=== PATIENT | male | born 1990 | race Two or more races ===

== ENCOUNTER 2025-02-08 14:57 | Emergency (ER) | payer MEDICAID, SELFPAY ==
--- NOTE | 2025-02-08 15:33 | XR_ITS ---
Examination: PA chest single view Technique: Upright PA chest single view. Date and time: February 08, 2025, 1551 hrs. Comparison September 18, 2023 Indications: Onset chest pain today. Findings: Normal heart size. Lungs are clear. The osseous structures are intact. Impression: No active disease
[2025-02-08 15:34] VITALS: BP 143/87; PULSE 93; RESP 18; TEMP 37.7; O2SAT 97; BMI 30.7
--- NOTE | 2025-02-08 15:35 | PD.EDRME ---
Rapid Medical Screening Exam RME Arrival date/time: 02/08/25 14:57 This is a case of 34-year-old male who came into the emergency room due to fever cough and congestion for 2 days patient also noted to have a lump of the neck denies any shortness of breath or chest pain I have greeted and performed a focused initial assessment of this patient.? Initial appropriate labs ordered at this time.? A comprehensive ED assessment and evaluation of the patient and analysis of all test and completion of medical decision making process will be conducted by additional ED provider. Chief Complaint: Flu Like Symptoms Time Seen by Provider: 02/08/25 15:02
[2025-02-08 15:58] LABS: Lactate (Lactic Acid) 1.1 mMol/L (0.4-2.0)
[2025-02-08 16:01] LABS: Basophils # (Auto) 0.1 Thou/mm3 (0.0-0.2); Basophils % (Auto) 1 % (0-2.5); Eosinophils # (Auto) 0.2 Thou/mm3 (0.0-0.5); Eosinophils % (Auto) 2 % (0-10); Hematocrit 42.1 % (41.0-53.0); Hemoglobin 15.1 g/dL (13.5-16.0); Immature Granulocytes % (Auto) 0 % (0-0); Immature Granulocytes Auto 0.03 Thou/mm3 (0.00-0.00); Lymphocytes # (Auto) 1.8 Thou/mm3 (1.0-4.8); Lymphocytes % (Auto) 17 % (10-50); Mean Corpuscular HGB Conc 35.9 g/dl (31.0-37.0); Mean Corpuscular Hemoglobin 31.7 pg (25.0-35.0); Mean Corpuscular Volume 88 fL (80-100); Monocytes % (Auto) 9 % (0-12); Neutrophils # (Auto) 7.8 Thou/mm3 (1.8-7.7); Neutrophils % (Auto) 71 % (37-80); Nucleated Red Blood Cell % 0 /100 WBC (0); Platelet Count 331 Thou/mm3 (140-440); RDW Standard Deviation 42.5 fL (35.1-43.9); Red Blood Count 4.76 Miln/mm3 (4.50-5.90)
[2025-02-08 16:04] VITALS: BP 130/72; PULSE 78; RESP 18; TEMP 38.4; O2SAT 96
[2025-02-08 16:19] LABS: Collection Type, Urine Voided; Squamous Epithelial Cell,Urine 0 /hpf (0-5)
[2025-02-08 16:20] LABS: Alanine Aminotransferase 52 U/L (10-49); Alkaline Phosphatase 81 U/L (46-116); Anion Gap 10 (7-16); Aspartate Amino Transferase 37 U/L (0-34); BUN/Creatinine Ratio 8 Ratio (12-20); Bilirubin,Total 0.4 mg/dL (0.3-1.2); Blood Urea Nitrogen 11 mg/dL (9-23); Calcium 9.5 mg/dL (8.3-10.6); Calcium (Corrected) 9.5 mg/dL (8.5-10.1); Carbon Dioxide 27.4 mMol/L (20.0-31.0); Chloride 102 mMol/L (98-107); Creatinine (Component) 1.4 mg/dL (0.6-1.3); Estimated Creatinine Clearance 91.2 mL/min (>60); Globulin 2.5 gm/dL (2.3-3.5); Glucose 94 mg/dL (74-106); Osmolality,Calculated 276 (275-295); Sodium 139 mMol/L (136-145); Total Protein 7.5 gm/dL (5.7-8.2); eGFR > 60 See Note
[2025-02-08 16:32] LABS: COVID-19 Antigen (In-House) Negative (Negative)
[2025-02-08 16:39] VITALS: TEMP 38.4
[2025-02-08] MEDS: ACETAMINOPHEN 500 MG TABLET 1000 MG PO (16:39)
[2025-02-08 16:42] LABS: Bilirubin,Urine Negative (Negative); Blood,Urine 2+ (Negative); Color,Urine Yellow (Lt Yel-Yel); Glucose, Urine Negative (Negative); Ketones,Urine Negative (Negative); Leukocyte Esterase,Urine Negative (Negative); Nitrite,Urine Negative (Negative); PH,Urine 6.5 (5.0-7.0); Protein,Urine Trace (Neg - Trace); RBC,Urine 2 /hpf (0-3); Specific Gravity,Urine 1.027 (1.001-1.035); Urobilinogen,Urine Negative mg/dL (0.0-1.0); WBC,Urine < 1 /hpf (0-5)
[2025-02-08 16:43] LABS: Clarity,Urine Hazy (Clear/Hazy)
--- NOTE | 2025-02-08 16:46 | PD.EDURI ---
Upper Respiratory Inf. RME/HPI General Chief Complaint: Flu Like Symptoms Stated Complaint: FEVERS, COLD CHILLS, LUMPS ON NECK Time Seen by Provider: 02/08/25 15:02 Arrival date/time: 02/08/25 14:57 Limitations: no limitations RME / HPI RME / HPI Narrative: 02/08/25 14:57 This is a case of 34-year-old male who came into the emergency room due to fever cough and congestion for 2 days patient also noted to have a lump of the neck denies any shortness of breath or chest pain I have greeted and performed a focused initial assessment of this patient.? Initial appropriate labs ordered at this time.? A comprehensive ED assessment and evaluation of the patient and analysis of all test and completion of medical decision making process will be conducted by additional ED provider. 16:45 PM Patient is a healthy 34-year-old male who is here today with a 2 to 3-day history of myalgias, malaise, and nausea. He has had no emesis. He endorses sinus congestion, cough, and nonbloody loose stools. He states he was recently treated for dental infection and finished a course of antibiotics for that. He has no other acute complaints. Related Data Home Medications ?Medication ?Instructions ?Recorded ?Confirmed mirtazapine 7.5 mg tablet 7.5 mg PO HS 09/20/23 11/12/23 Previous Rx's ?Medication ?Instructions ?Recorded ibuprofen 800 mg tablet 800 mg PO TID PRN pain #30 tabs 05/09/24 Allergies Allergy/AdvReac Type Severity Reaction Status Date / Time No Known Allergies Allergy Verified 02/08/25 15:00 Review of Systems Review of Systems Systems Reviewed: All systems reviewed, normal except as documented ED Exam General Limitations: Present no limitations General appearance: Present alert and in no apparent distress Head Head exam: Present atraumatic Eye Eye exam: Present normal appearance, PERRL and EOMI ENT ENT exam: Present normal exam, normal oropharynx and mucous membranes moist Neck Neck exam: Present full ROM, trachea midline and lymphadenopathy; Absent meningismus Chest Chest inspection: Present normal inspection and symmetric chest wall rise Respiratory Respiratory exam: Present normal lung sounds bilaterally Cardiovascular Cardiovascular exam: Present regular rate, normal rhythm and normal heart sounds Abdominal Exam Abdominal exam: Present soft and normal bowel sounds Extremities Exam Extremities exam: Present normal inspection and full ROM Back Exam Back exam: Present normal inspection and full ROM Neurological Exam Neurological exam: Present alert, oriented X3 and CN II-XII intact Psychiatric Psychiatric exam: Present normal affect and normal mood Skin Skin exam: Present warm, dry, intact and normal color Course Quality Measures none Orders Category Date Time Status Bedside COVID-19 Antigen Test NOW Care 02/08/25 15:33 Active Bedside Influenza A&B Antigen Test NOW Care 02/08/25 15:33 Completed XR chest 1V Stat Exams 02/08/25 15:33 Completed CBC Stat Lab 02/08/25 15:48 Completed CMP [Comprehensive Metabolic Panel] Stat Lab 02/08/25 15:48 Completed COVID-19 Antigen (In-House) Stat Lab 02/08/25 15:51 Completed Lactate (Lactic Acid) Stat Lab 02/08/25 15:48 Completed Urinalysis Stat Lab 02/08/25 15:56 Completed Acetaminophen Tab [Tylenol ES Tab] Med 02/08/25 16:33 Discontinued 1,000 mg PO X1 ONE Sodium Chloride 0.9% 1000 ml [Ns] 1,000 ml Med 02/08/25 16:22 Discontinued IV 999 mls/hr Vital Signs Vital signs: Vital Signs Temperature 99.8 F 02/08/25 15:34 Pulse Rate 93 02/08/25 15:34 Respiratory Rate 18 02/08/25 15:34 Blood Pressure 143/87 H 02/08/25 15:34 Pulse Oximetry (%) 97 02/08/25 15:34 Oxygen Delivery Method Room Air 02/08/25 15:34 Upper Respiratory Infection MDM Narrative MDM Narrative:: 34-year-old healthy male is here today with a 2 to 3-day history of congestion, cough, loose stools and myalgias. He is febrile in the emergency room. Vital signs are otherwise stable. Screening test were obtained and patient has influenza type B. He also has an elevated creatinine so a liter of normal saline was provided. We discussed likely self-limiting viral etiology. Patient will use Tylenol as needed for comfort. Increase oral hydration. Follow-up with his primary doctor over the next 1 to 2 weeks for recheck of his creatinine levels. Return precautions were discussed. He agrees return as needed for any worsening or emergent changes. Patient data External records reviewed:: None Clinical information provided by:: patient Social determinants that could affect healthcare access:: none Patient has the following chronic illnesses:: n/a How is presenting disease/condition affected by chronic disease/condition?: no chronic disease Evaluation data The following diagnostics were reviewed and interpreted by me:: lab results and radiology exam(s) Lab and/or radiology exams considered but not ordered:: n/a Interpretation Summary: Influenza type B, VENANCIO Medications / Prescriptions Medications or Prescriptions considered but not ordered:: n/a Medication administrations:: Medication Administration History Discontinued Medications Acetaminophen (Acetaminophen 500 Mg Tablet) 1,000 mg PO X1 ONE Stop: 02/08/25 16:34 Last Admin: 02/08/25 16:39 Dose: 1,000 mg Documented By: JEAN CARLOS Sodium Chloride (Ns) 1,000 mls @ 999 mls/hr IV .Q1H1M ONE Stop: 02/08/25 17:22 Last Admin: 02/08/25 16:50 Dose: 999 mls/hr Documented By: EF See above Consultations Consultation(s) initiated? (list below): No Diagnosis Upper Respiratory Differential Diagnosis: upper respiratory infection, sinusitis, viral infection, bronchitis and influenza Most likely diagnosis given after review of the tests above:: Influenza type B, VENANCIO Admission Indicated Admission indicated?: not indicated Admission Request Was there a request for admission?: No Disposition Plan Disposition Plan: Discharge Discharge Attestation Discharge Attestation: The patient and all family members were given an opportunity to ask questions and understood the discharge instructions. Discharge instructions specifically effects, indications for sooner follow up or return to the emergency department, and the expected course of current diagnosis. Patient condition: Stable Discharge Plan Plan Patient Disposition: HOME (Self Care) Patient condition on transfer: Stable Prescriptions/Referrals Prescriptions/Med Rec: No Action mirtazapine 7.5 mg tablet 7.5 mg PO HS Patient Comments: TAKE 1 TABLET BY MOUTH EVERYDAY AT BEDTIME ibuprofen 800 mg tablet 800 mg PO TID PRN (Reason: pain) Qty: 30 0RF Referrals: No Primary/Family,Physician [Primary Care Provider] - In 1 week Problem List Clinical Impression: Influenza, VENANCIO (acute kidney injury) Patient/Caregiver Discharge Instructions Education Materials: Acute Kidney Failure Dc, The Flu (Influenza) Additional Instructions: Use Tylenol for fever and comfort. Increase oral hydration. Avoid ibuprofen temporarily until your kidney function improves. You will need to follow-up with your primary clinic in 1 to 2 weeks to have this rechecked. Return here at anytime for any worsening or emergent changes. Print Language: Hungarian Stand Alone Forms: Kate Award Info., Patient Portal Info Letter
[2025-02-08] MEDS: SODIUM CHLORIDE 0.9% 1000 ML 1,000 ML 999 ML IV (16:50)
[2025-02-08 17:40] VITALS: BP 130/71; PULSE 71; RESP 16; TEMP 37.6; O2SAT 95
== END 2025-02-08 18:05 | disposition home or self-care (01) ==
PROVIDERS: Nurse Practitioner Family; Emergency Provider Family Medicine
DX: J11.1 Influenza due to unidentified influenza virus with other respiratory manifestations (principal); N17.9 Acute kidney failure, unspecified; R07.9 Chest pain, unspecified; R22.1 Localized swelling, mass and lump, neck
CPT/HCPCS: 36415; 71045; 80053; 81001; 83605; 85025; 87400; 87811; 99284; J7030; A9270

== ENCOUNTER 2025-02-09 20:23 | Emergency (ER) | payer MEDICAID, SELFPAY ==
[2025-02-09 20:25] VITALS: BMI 31.1
--- NOTE | 2025-02-09 20:51 | PD.EDFEVER ---
ED Fever RME/HPI General Chief Complaint: Fever Stated Complaint: FEVER, LUMBS ON NECK Time Seen by Provider: 02/09/25 21:17 Arrival date/time: 02/09/25 20:23 RME / HPI RME / HPI Narrative: This section includes all my notes and documentations, including HPI, PE, and ED course. Toribio Schmitz MD HPI: 34yo male with no significant past medical history presents to the ED for complaints of fever, chills, and sweating for the last few days. Also cough, runny nose, nausea, and decreased appetite. Patient was seen here yesterday for the same complaints, but his symptoms have not improved. Patient is also concerned because he had a tooth abscess removed 1 week ago and now has lumps in his neck. He took Tylenol and a marijuana edible earlier today without improvement of symptoms. No vomiting, dysuria or any other associated symptoms. No other complanits reported. ROS: All negative except as documented in HPI. Physical Exam: General: Alert and oriented. Hacking cough noted. Fever noted. Eyes: Conjunctivae and lids clear. ENT: No nasal congestion. Neck: Supple. Heart: RRR. Lungs: No respiratory distress. Moderately decreased air movement with rhonchi. Abdomen: Soft and nontender. Normal bowel sounds. No distension. No rebound or guarding. Back: No CVA tenderness. Skin: Warm and dry. Neuro: Alert and oriented X 3. I reviewed all diagnostic test results. My interpretation of the chest x-ray is NAD. Blood tests and urine tests are unremarkable. Influenza positive yesterday. At this point, diagnoses include Influenza. Treatment here included Tamiflu, Morphine, Zofran, Solumedrol, Toradol, Duoneb, Tylenol, and NS. Significant improvement noted. Recommended outpatient management. Based on my best medical judgment, made decision no further evaluation or treatment indicated at this time. Patient understands and agrees to the discharge instructions customized and printed, see below. Discharge instructions from Dr. Schmitz: --With influenza, you are going to be severely sick for several days. --No physical exertion for 3 days to help rest your lungs. --No smoking and no exposure to smoking or pets or dust or humidity. --Tamiflu to kill the influenza germs. --Prednisone to help decrease inflammation of the lungs. --Ibuprofen 800 mg every 8 hours today and tomorrow. Then as needed for fever or pain. --Tylenol with codeine for severe cough or pain. --Albuterol 2 puffs every 4-6 hours for 3 days scheduled. Then as needed (and in between) for cough or shortness or breath. ?Increase oral fluid. We need extra fluid when we are sick. For good hydration, increase oral fluid and maintain clear urine. If dark or yellow, increase oral fluid. --Take Augmentin as prescribed, as recommended by your PCP. --See a private doctor on 02/11/2025 for recheck and further care. Ask to review all test results and official radiology reports, to make sure you receive all necessary follow-ups and monitoring. Ask for help until you are completely better, including your enlarged lymph nodes in the neck. If they do not go away, you may need biopsy. --Seek immediate medical care with significant worsening or with any concerns. Toribio Schmitz MD Related Data Home Medications ?Medication ?Instructions ?Recorded ?Confirmed mirtazapine 7.5 mg tablet 7.5 mg PO HS 09/20/23 11/12/23 Previous Rx's ?Medication ?Instructions ?Recorded ibuprofen 800 mg tablet 800 mg PO TID PRN pain #30 tabs 05/09/24 acetaminophen 300 mg-codeine 30 mg 2 tab PO Q8H PRN pain #20 tabs 02/09/25 tablet albuterol sulfate 90 mcg/actuation 2 puff inhalation Q6H PRN 02/09/25 aerosol inhaler shortness of breath or wheezing #8.5 grams amoxicillin 875 mg-potassium 1 tab PO BID #20 tabs 02/09/25 clavulanate 125 mg tablet ondansetron 4 mg disintegrating 4 mg PO TID PRN nausea and 02/09/25 tablet vomiting 30 days #10 tabs oseltamivir 75 mg capsule (Tamiflu) 75 mg PO BID 5 days #10 caps 02/09/25 prednisone 50 mg tablet 50 mg PO QDAY #3 tabs 02/09/25 Allergies Allergy/AdvReac Type Severity Reaction Status Date / Time No Known Allergies Allergy Verified 02/09/25 20:25 Review of Systems Review of Systems Systems Reviewed: All systems reviewed, normal except as documented Past Medical History Past Medical History NEUROLOGIC: Negative Neurological Disorders or Seizures CARDIAC: Negative Cardiac Disorders or Congestive Heart Failure RESPIRATORY: Negative Chronic Obstructive Pulmonary Disease (COPD) or Asthma GASTROINTESTINAL: Positive Diverticulitis; Negative Gastrointestinal Disorders GENITOURINARY: Negative Genitourinary Disorders or Renal Disease MUSCULOSKELETAL: Negative Musculoskeletal Disorders ENDOCRINE: Negative Endocrine Disorders, Diabetes Mellitus Type 1 or Diabetes Mellitus Type 2 HEMATOLOGIC: Negative Blood Disorders or Sickle Cell Disease PSYCHO/SOCIAL: Positive Depression and Anxiety; Negative Bipolar Disorder OTHER HISTORY: Negative Autoimmune Disease, Blood Transfusions, Anesthesia Reactions, Organ Transplant, MRSA, Clostridium Difficile or Cancer Surgical History SURGICAL: Negative Endocrine Surgery, Ear Surgery, Abdominal Surgery, Nephrectomy, Joint Replacement, Neurologic Surgery, Mastectomy, Vasectomy or Organ Transplant Social History SMOKING STATUS: Light (< 1 pack/day) SUBSTANCE USE: marijuana Physical Exam Narrative Physical exam: As noted in HPI. Course Course Course Narrative: CXR is ordered for determining the etiology of fever. Quality Measures none Orders Category Date Time Status Saline [Insert IV] NOW Care 02/09/25 20:56 Active XR chest 1V portable Stat Exams 02/09/25 20:58 Completed Bilirubin,Direct Stat Lab 02/09/25 21:27 Completed Blood Culture (Lab) Stat Lab 02/09/25 21:27 Received CBC Stat Lab 02/09/25 21:27 Completed CMP [Comprehensive Metabolic Panel] Stat Lab 02/09/25 21:27 Completed CRP [C-Reactive Protein] Stat Lab 02/09/25 21:27 Completed ESR [Sed Rate (ESR)] Stat Lab 02/09/25 21:27 Completed Lactate (Lactic Acid) Stat Lab 02/09/25 21:27 Completed Magnesium Stat Lab 02/09/25 21:27 Completed Procalcitonin Stat Lab 02/09/25 21:27 Completed UA, C/S IF [Urinalysis, C/S if Indicated] Stat Lab 02/09/25 21:15 Completed Acetaminophen Tab [Tylenol ES Tab] Med 02/09/25 20:57 Discontinued 1,000 mg PO X1 ONE Albuterol/Ipratr Rt Ashley [Duoneb Rt Ashley] Med 02/09/25 20:57 Discontinued 3 ml INH X1 ONE Ketorolac Inj [Toradol Inj] Med 02/09/25 20:57 Discontinued 30 mg IVP X1 ONE MethylPREDNISolone.* [SoluMEDROL Inj] Med 02/09/25 20:57 Discontinued 125 mg IVP X1 ONE Morphine Inj Med 02/09/25 20:57 Discontinued 2 mg IVP X1 ONE Ondansetron Inj [Zofran Inj] Med 02/09/25 20:57 Discontinued 4 mg IVP X1 ONE Oseltamivir [Tamiflu] Med 02/09/25 21:03 Discontinued 75 mg PO X1 ONE Sodium Chloride 0.9% 1000 ml [Ns] 1,000 ml Med 02/09/25 20:57 Discontinued IV 999 mls/hr Vital Signs Vital signs: Vital Signs Temperature 101.1 F H 02/09/25 20:53 Pulse Rate 87 02/09/25 20:53 Respiratory Rate 19 02/09/25 20:53 Blood Pressure 136/87 H 02/09/25 20:53 Pulse Oximetry (%) 99 02/09/25 20:53 Oxygen Delivery Method Room Air 02/09/25 20:53 Fever MDM Narrative MDM Narrative:: 34yo male with no significant past medical history presents to the ED for complaints of fever, chills, and sweating for the last few days. Patient has had a dry cough, runny nose, nausea, and decreased appetite. Patient was seen here yesterday for the same complaints, but his symptoms have not improved. Patient is also concerned because he had a tooth abscess removed 1 week ago and now has lumps in his neck. He took Tylenol and a marijuana edible earlier today without improvement of symptoms. No vomiting, dysuria or any other associated symptoms. No other complaints reported. Patient data External records reviewed:: [facility] previous records (Per chart review, patient was seen here yesterday for VENANCIO. Patient tested positive for Influenza B yesterday.) Clinical information provided by:: patient Social determinants that could affect healthcare access:: substance use (marijuana use) Patient has the following chronic illnesses:: none How is presenting disease/condition affected by chronic disease/condition?: no chronic disease Evaluation data The following diagnostics were reviewed and interpreted by me:: lab results and radiology exam(s) Lab and/or radiology exams considered but not ordered:: none Interpretation Summary: I reviewed all diagnostic test results. My interpretation of the chest x-ray is NAD. Blood tests and urine tests are unremarkable. Medications / Prescriptions Medications or Prescriptions considered but not ordered:: none Medication administrations:: Medication Administration History Discontinued Medications Acetaminophen (Acetaminophen 500 Mg Tablet) 1,000 mg PO X1 ONE Stop: 02/09/25 20:58 Last Admin: 02/09/25 21:15 Dose: 1,000 mg Documented By: ADRIAN Albuterol/Ipratropium (Albuterol/Ipratropium (Duoneb) Rt Ashley 3 Ml Nebu) 3 ml INH X1 ONE Stop: 02/09/25 20:58 Last Admin: 02/09/25 21:35 Dose: 3 ml Documented By: JACKELINE Sodium Chloride (Ns) 1,000 mls @ 999 mls/hr IV .Q1H1M ONE Stop: 02/09/25 21:57 Last Admin: 02/09/25 21:32 Dose: 999 mls/hr Documented By: JAROCHO Ketorolac Tromethamine (Ketorolac Inj 30 Mg/Ml Vial) 30 mg IVP X1 ONE Stop: 02/09/25 20:58 Last Admin: 02/09/25 21:36 Dose: 30 mg Documented By: JAROCHO Methylprednisolone Sodium Succinate (Methylprednisolone Sod Succ 62.5 Mg/Ml 2ml Vial) 125 mg IVP X1 ONE Stop: 02/09/25 20:58 Last Admin: 02/09/25 21:36 Dose: 125 mg Documented By: JAROCHO Morphine Sulfate (Morphine Sulf Inj 10 Mg/Ml Vial) 2 mg IVP X1 ONE Stop: 02/09/25 20:58 Ondansetron HCl (Ondansetron Inj 2 Mg/Ml Inj 2 Ml) 4 mg IVP X1 ONE; Protocol Stop: 02/09/25 20:58 Last Admin: 02/09/25 21:37 Dose: 4 mg Documented By: JAROCHO Oseltamivir Phosphate (Oseltamivir 75 Mg Capsule) 75 mg PO X1 ONE Stop: 02/09/25 21:04 Last Admin: 02/09/25 21:15 Dose: 75 mg Documented By: ADRIAN Tamiflu, Morphine, Zofran, Solumedrol, Toradol, Duoneb, Tylenol, NS Consultations Consultation(s) initiated? (list below): No Diagnosis Fever Differential Diagnosis: community acquired pneumonia, viral infection and influenza Most likely diagnosis given after review of the tests above:: Influenza Admission Indicated Admission indicated?: not indicated Explain why admission is indicated or not indicated:: With significant improvement and no condition needing emergent intervention, there was no indication for admission. Admission Request Was there a request for admission?: No Disposition Plan Disposition Plan: Discharge Discharge Attestation Discharge Attestation: The patient and all family members were given an opportunity to ask questions and understood the discharge instructions. Discharge instructions specifically effects, indications for sooner follow up or return to the emergency department, and the expected course of current diagnosis. Patient condition: Stable Discharge Plan Plan Patient Disposition: HOME (Self Care) Prescriptions/Referrals Prescriptions/Med Rec: New acetaminophen-codeine 300-30 mg tablet 2 tab PO Q8H MDD 6 PRN (Reason: pain) Qty: 20 0RF oseltamivir [Tamiflu] 75 mg capsule 75 mg PO BID 5 Days Qty: 10 0RF prednisone 50 mg tablet 50 mg PO QDAY Qty: 3 0RF albuterol sulfate 90 mcg/actuation HFA aerosol inhaler 2 puff inhalation Q6H PRN (Reason: shortness of breath or wheezing) Qty: 8.5 0RF ondansetron 4 mg tablet,disintegrating 4 mg PO TID PRN (Reason: nausea and vomiting) 30 Days Qty: 10 0RF amoxicillin-pot clavulanate 875-125 mg tablet 1 tab PO BID Qty: 20 0RF No Action mirtazapine 7.5 mg tablet 7.5 mg PO HS Patient Comments: TAKE 1 TABLET BY MOUTH EVERYDAY AT BEDTIME ibuprofen 800 mg tablet 800 mg PO TID PRN (Reason: pain) Qty: 30 0RF Referrals: No Primary/Family,Physician [Primary Care Provider] - In 1 week Problem List Clinical Impression: Influenza Patient/Caregiver Discharge Instructions Discharge Activity: activity as tolerated Education Materials: ED Influenza (Adult) Additional Instructions: Discharge instructions from Dr. Schmitz: --With influenza, you are going to be severely sick for several days. --No physical exertion for 3 days to help rest your lungs. --No smoking and no exposure to smoking or pets or dust or humidity. --Tamiflu to kill the influenza germs. --Prednisone to help decrease inflammation of the lungs. --Ibuprofen 800 mg every 8 hours today and tomorrow.? Then as needed for fever or pain. --Tylenol with codeine for severe cough or pain. --Albuterol 2 puffs every 4-6 hours for 3 days scheduled.? Then as needed (and in between) for cough or shortness or breath.?? ?Increase oral fluid.? We need extra fluid when we are sick.?? For good hydration, increase oral fluid and maintain clear urine. If dark or yellow, increase oral fluid. --Take Augmentin as prescribed, as recommended by your PCP. --See a private doctor on 02/11/2025 for recheck and further care. Ask to review all test results and official radiology reports, to make sure you receive all necessary follow-ups and monitoring. Ask for help until you are completely better, including your enlarged lymph nodes in the neck. If they do not go away, you may need biopsy. --Seek immediate medical care with significant worsening or with any concerns. Print Language: Chadian Stand Alone Forms: Kate Award Info., Patient Portal Info Letter
[2025-02-09 20:53] VITALS: BP 136/87; PULSE 87; RESP 19; TEMP 38.4; O2SAT 99
--- NOTE | 2025-02-09 20:58 | XR_ITS ---
Examination: AP chest single view TECHNIQUE: AP portable semiupright chest single view INDICATIONS: Coughing today with lumps in the neck post dental work FINDINGS: Normal heart size Lungs are clear. The osseous structures are intact. IMPRESSION: No active disease
[2025-02-09 21:07] VITALS: BP 132/70; PULSE 78; RESP 18; TEMP 38.7; O2SAT 96
[2025-02-09 21:15] VITALS: TEMP 38.7
[2025-02-09] MEDS: ACETAMINOPHEN 500 MG TABLET 1000 MG PO (21:15)
[2025-02-09] MEDS: OSELTAMIVIR 75 MG CAPSULE PO (21:15)
[2025-02-09 21:26] LABS: Collection Type, Urine Clean Catch; Squamous Epithelial Cell,Urine 0 /hpf (0-5)
[2025-02-09] MEDS: SODIUM CHLORIDE 0.9% 1000 ML 1,000 ML 999 ML IV (21:32)
[2025-02-09] MEDS: ALBUTEROL/IPRATROPIUM (Duoneb) RT SOL 3 ML NEBU INH (21:35)
[2025-02-09] MEDS: MethylPREDNISolone SOD SUCC 62.5 MG/ML 2ML VIAL 125 MG IVP (21:36)
[2025-02-09] MEDS: KETOROLAC INJ 30 MG/ML VIAL IVP (21:36)
[2025-02-09] MEDS: ONDANSETRON INJ 2 MG/ML INJ 2 ML 4 MG IVP (21:37)
[2025-02-09 21:38] VITALS: PULSE 71; RESP 20; O2SAT 100
[2025-02-09 21:43] LABS: Amorphous Crystals,Urine Present (Absent); Bacteria,Urine Rare; Bilirubin,Urine Negative (Negative); Blood,Urine 1+ (Negative); Clarity,Urine Clear (Clear/Hazy); Color,Urine Lt-Yellow (Lt Yel-Yel); Culture Indicated,Urine Not Indicated; Glucose, Urine Negative (Negative); Ketones,Urine Negative (Negative); Leukocyte Esterase,Urine Negative (Negative); Nitrite,Urine Negative (Negative); Protein,Urine Negative (Neg - Trace); RBC,Urine 13 /hpf (0-3); Specific Gravity,Urine 1.019 (1.001-1.035); Urobilinogen,Urine Negative mg/dL (0.0-1.0); WBC,Urine 1 /hpf (0-5)
[2025-02-09 21:52] LABS: Lactate (Lactic Acid) 1.5 mMol/L (0.4-2.0)
[2025-02-09 21:54] LABS: Basophils # (Auto) 0.1 Thou/mm3 (0.0-0.2); Basophils % (Auto) 1 % (0-2.5); Eosinophils # (Auto) 0.2 Thou/mm3 (0.0-0.5); Eosinophils % (Auto) 2 % (0-10); Hematocrit 43.9 % (41.0-53.0); Hemoglobin 15.5 g/dL (13.5-16.0); Immature Granulocytes % (Auto) 0 % (0-0); Immature Granulocytes Auto 0.03 Thou/mm3 (0.00-0.00); Lymphocytes % (Auto) 19 % (10-50); Mean Corpuscular HGB Conc 35.3 g/dl (31.0-37.0); Mean Corpuscular Hemoglobin 31.5 pg (25.0-35.0); Mean Corpuscular Volume 89 fL (80-100); Monocytes % (Auto) 9 % (0-12); Neutrophils # (Auto) 7.6 Thou/mm3 (1.8-7.7); Neutrophils % (Auto) 70 % (37-80); Nucleated Red Blood Cell % 0 /100 WBC (0); Platelet Count 344 Thou/mm3 (140-440); RDW Standard Deviation 42.5 fL (35.1-43.9); Red Blood Count 4.92 Miln/mm3 (4.50-5.90); White Blood Count 10.9 Thou/mm3 (3.8-10.6)
[2025-02-09 22:11] LABS: Sed Rate (ESR) 33 mm/hr (0-15)
[2025-02-09 22:20] LABS: Alanine Aminotransferase 58 U/L (10-49); Albumin, Serum 5.3 gm/dL (3.5-5.0); Albumin/Globulin Ratio 2.1 (1.2-2.2); Alkaline Phosphatase 88 U/L (46-116); Anion Gap 10 (7-16); Aspartate Amino Transferase 39 U/L (0-34); BUN/Creatinine Ratio 7 Ratio (12-20); Bilirubin,Direct 0.2 mg/dL (0.0-0.3); Bilirubin,Total 0.6 mg/dL (0.3-1.2); Blood Urea Nitrogen 8 mg/dL (9-23); C-Reactive Protein 1.1 mg/dL (0.0-0.9); Calcium 9.7 mg/dL (8.3-10.6); Calcium (Corrected) 9.7 mg/dL (8.5-10.1); Carbon Dioxide 23.5 mMol/L (20.0-31.0); Chloride 98 mMol/L (98-107); Creatinine (Component) 1.2 mg/dL (0.6-1.3); Estimated Creatinine Clearance 107.1 mL/min (>60); Globulin 2.5 gm/dL (2.3-3.5); Glucose 102 mg/dL (74-106); Magnesium 1.9 mg/dL (1.6-2.6); Osmolality,Calculated 260 (275-295); Potassium 3.8 mMol/L (3.4-5.1); Procalcitonin 0.16 ng/ml (0.0-0.49); Sodium 131 mMol/L (136-145); Total Protein 7.8 gm/dL (5.7-8.2); eGFR > 60 See Note
== END 2025-02-09 23:10 | disposition home or self-care (01) ==
PROVIDERS: Emergency Provider Emergency Medicine
DX: J10.1 Influenza due to other identified influenza virus with other respiratory manifestations (principal); F17.210 Nicotine dependence, cigarettes, uncomplicated
CPT/HCPCS: 36415; 71045; 80053; 81001; 82248; 83605; 83735; 84145; 85025; 85652; 86140; 87040; 87634; 87651; 94640; 96361; 96374; 96375; 99284; A9270; J1885; J2405; J2919; J7030

== ENCOUNTER 2025-03-18 19:46 | Emergency (ER) | payer MEDICAID, SELFPAY ==
[2025-03-18 19:47] VITALS: BMI 32.1
[2025-03-18 20:26] VITALS: BP 110/69; PULSE 70; RESP 19; TEMP 36.6; O2SAT 97
--- NOTE | 2025-03-18 21:27 | XR_ITS ---
Examination: CT soft tissue neck, with intravenous contrast. 2-D coronal reconstructions. 2-D sagittal reconstructions. Date and time of exam :March 18, 2025 10:37 PM INDICATIONS: Lumps in the neck beginning 6 weeks ago. CTDI: vol (mGy):18.2 DLP: (mGycm):470 Technique: 1.25 mm axial sections of the neck of the obtained. Coronal and sagittal reconstructions have been obtained. Intravenous contrast administered 60 cc Isovue-370. Low dose protocols were performed. One or more of the following dose reduction techniques were used; automated exposure control, adjustment of the mA and/or KV according to patient size, use of iterative reconstruction technique. Findings: Symmetrical nasopharynx oropharynx Bilateral carotid triangle lymph nodes, the largest on the right side 22 mm the largest on the left side 18 mm The larynx appears normal Thyroid lobes are not enlarged Symmetrical submandibular glands and parotid glands Normal epiglottis IMPRESSION: Significant bilateral carotid triangle lymphadenopathy as above, differential would include early Hodgkin's disease non-Hodgkin's lymphoma
--- NOTE | 2025-03-18 21:27 | XR_ITS ---
Examination: CT chest with intravenous contrast 2-D sagittal and coronal reconstructions Exam date and time: February 19, 2025 1037 hours INDICATIONS: Night sweats chest pain beginning 6 weeks ago CTDI:vol (mGy) 32.2 DLP: (mGycm) 1309 Technique: Multiple axial sections of the thorax have been obtained. Sections have been obtained, 3 mm slice thickness. Mediastinal and lung density settings have been obtained. Intravenous contrast administered, 60 cc Isovue-370 name. 2-D sagittal, coronal images obtained. Low dose protocols were performed. One or more of the following dose reduction techniques were used; automated exposure control, adjustment of the mA and/or KV according to patient size, use of iterative reconstruction technique. Findings: No thoracic aortic aneurysm dilatation or dissection No pulmonary artery emboli No peritracheal tracheobronchial or bronchopulmonary adenopathy No pneumonia or pulmonary edema or pleural disease No visualized liver and splenic lesion Contracted gallbladder No pancreatic mass No hydronephrosis Osseous structures intact IMPRESSION: No mediastinal lymphadenopathy. No pneumonia, pulmonary edema or pleural disease
[2025-03-18 21:48] LABS: Basophils # (Auto) 0.1 Thou/mm3 (0.0-0.2); Basophils % (Auto) 1 % (0-2.5); Eosinophils # (Auto) 0.2 Thou/mm3 (0.0-0.5); Eosinophils % (Auto) 1 % (0-10); Hematocrit 42.0 % (41.0-53.0); Hemoglobin 14.9 g/dL (13.5-16.0); Immature Granulocytes Auto 0.03 Thou/mm3 (0.00-0.00); Lymphocytes # (Auto) 5.1 Thou/mm3 (1.0-4.8); Lymphocytes % (Auto) 38 % (10-50); Mean Corpuscular HGB Conc 35.5 g/dl (31.0-37.0); Mean Corpuscular Hemoglobin 31.7 pg (25.0-35.0); Mean Corpuscular Volume 89 fL (80-100); Monocytes # (Auto) 0.7 Thou/mm3 (0.0-0.8); Monocytes % (Auto) 5 % (0-12); Neutrophils # (Auto) 7.5 Thou/mm3 (1.8-7.7); Neutrophils % (Auto) 56 % (37-80); Nucleated Red Blood Cell # 0.00 Thou/mm3 (0.00-0.00); Nucleated Red Blood Cell % 0 /100 WBC (0); Platelet Count 374 Thou/mm3 (140-440); RDW Standard Deviation 42.0 fL (35.1-43.9); Red Blood Count 4.70 Miln/mm3 (4.50-5.90); White Blood Count 13.6 Thou/mm3 (3.8-10.6)
[2025-03-18 22:08] LABS: Alanine Aminotransferase 15 U/L (10-49); Albumin, Serum 5.1 gm/dL (3.5-5.0); Albumin/Globulin Ratio 1.8 (1.2-2.2); Alkaline Phosphatase 74 U/L (46-116); Anion Gap 8 (7-16); Aspartate Amino Transferase 20 U/L (0-34); BUN/Creatinine Ratio 12 Ratio (12-20); Bilirubin,Total 0.5 mg/dL (0.3-1.2); Blood Urea Nitrogen 13 mg/dL (9-23); Calcium 10.4 mg/dL (8.3-10.6); Calcium (Corrected) 10.4 mg/dL (8.5-10.1); Carbon Dioxide 25.1 mMol/L (20.0-31.0); Chloride 106 mMol/L (98-107); Creatinine (Component) 1.1 mg/dL (0.6-1.3); Estimated Creatinine Clearance 118.5 mL/min (>60); Globulin 2.8 gm/dL (2.3-3.5); Glucose 80 mg/dL (74-106); Osmolality,Calculated 276 (275-295); Potassium 4.1 mMol/L (3.4-5.1); Sodium 139 mMol/L (136-145); Total Protein 7.9 gm/dL (5.7-8.2); eGFR > 60 See Note
--- NOTE | 2025-03-18 22:19 | PD.EDNECK ---
ED Neck Injury Pain RME/HPI General Chief Complaint: Neck Pain/Injury Stated Complaint: PAINFUL LUMPS TO NECK Time Seen by Provider: 03/18/25 21:19 Arrival date/time: 03/18/25 19:46 34M with no significant PMH presents to ED with 1.5 months of painful lumps around R neck/ear area. Patient was here for initial presentation and diagnosed with influenza and given Tamiflu and Augmentin. Patient states symptoms persist and patient now has some night sweats and LUQ tenderness. Patient has had diverticulitis before and states this feels different. Limitations: no limitations Related Data Home Medications ?Medication ?Instructions ?Recorded ?Confirmed mirtazapine 7.5 mg tablet 7.5 mg PO HS 09/20/23 11/12/23 Previous Rx's ?Medication ?Instructions ?Recorded ibuprofen 800 mg tablet 800 mg PO TID PRN pain #30 tabs 05/09/24 acetaminophen 300 mg-codeine 30 mg 2 tab PO Q8H PRN pain #20 tabs 02/09/25 tablet albuterol sulfate 90 mcg/actuation 2 puff inhalation Q6H PRN 02/09/25 aerosol inhaler shortness of breath or wheezing #8.5 grams amoxicillin 875 mg-potassium 1 tab PO BID #20 tabs 02/09/25 clavulanate 125 mg tablet prednisone 50 mg tablet 50 mg PO QDAY #3 tabs 02/09/25 Allergies Allergy/AdvReac Type Severity Reaction Status Date / Time No Known Allergies Allergy Verified 03/18/25 19:50 Review of Systems Review of Systems Systems Reviewed: All systems reviewed, normal except as documented Constitutional Constitutional: Reports system reviewed and no additional complaints, except as documented, Denies fever(s) and Denies headache(s) ENT Ears, Nose, Mouth, and Throat: Denies disequilibrium and Denies headache(s) Cardiovascular Cardiovascular: Reports system reviewed and no additional complaints, except as documented, Denies chest pain and Denies dyspnea Respiratory Respiratory: Reports system reviewed and no additional complaints, except as documented, Denies cough and Denies dyspnea Gastrointestinal Gastrointestinal: Reports system reviewed and no additional complaints, except as documented, Reports as per HPI, Reports abdominal pain, Denies nausea and Reports vomiting Integumentary/Breasts Skin/Breast: Reports as per HPI and Reports skin pain Neurologic Neurologic: Reports system reviewed and no additional complaints, except as documented, Denies confusion, Denies disequilibrium and Denies headache(s) Psychiatric Psychiatric: Denies confusion Past Medical History Past Medical History NEUROLOGIC: Negative Neurological Disorders or Seizures CARDIAC: Negative Cardiac Disorders or Congestive Heart Failure RESPIRATORY: Negative Chronic Obstructive Pulmonary Disease (COPD) or Asthma GASTROINTESTINAL: Positive Diverticulitis; Negative Gastrointestinal Disorders GENITOURINARY: Negative Genitourinary Disorders or Renal Disease MUSCULOSKELETAL: Negative Musculoskeletal Disorders ENDOCRINE: Negative Endocrine Disorders, Diabetes Mellitus Type 1 or Diabetes Mellitus Type 2 HEMATOLOGIC: Negative Blood Disorders or Sickle Cell Disease PSYCHO/SOCIAL: Positive Depression and Anxiety; Negative Bipolar Disorder OTHER HISTORY: Negative Autoimmune Disease, Blood Transfusions, Anesthesia Reactions, Organ Transplant, MRSA, Clostridium Difficile or Cancer Surgical History SURGICAL: Negative Endocrine Surgery, Ear Surgery, Abdominal Surgery, Nephrectomy, Joint Replacement, Neurologic Surgery, Mastectomy, Vasectomy or Organ Transplant Social History SMOKING STATUS: Never smoker SUBSTANCE USE: marijuana ED Exam General Limitations: Present no limitations General appearance: Present alert and in no apparent distress Head Head exam: Present atraumatic Eye Eye exam: Present normal appearance, PERRL and EOMI ENT ENT exam: Present normal exam, normal oropharynx and mucous membranes moist Neck Neck exam: Present full ROM, trachea midline and lymphadenopathy (R anterior neck/ear) Chest Chest inspection: Present normal inspection and symmetric chest wall rise Respiratory Respiratory exam: Present normal lung sounds bilaterally Cardiovascular Cardiovascular exam: Present regular rate, normal rhythm and normal heart sounds Abdominal Exam Abdominal exam: Present soft and normal bowel sounds Abdominal tenderness: Present LUQ and mild Extremities Exam Extremities exam: Present normal inspection and full ROM Back Exam Back exam: Present normal inspection and full ROM Neurological Exam Neurological exam: Present alert, oriented X3 and CN II-XII intact Psychiatric Psychiatric exam: Present normal affect and normal mood Skin Skin exam: Present warm, dry, intact and normal color Course Quality Measures none Orders Category Date Time Status CT Screening NOW Care 03/18/25 21:27 Completed Insert IV NOW Care 03/18/25 21:[address] chest w con Stat Exams 03/18/25 21:[address] soft tissue neck w con Stat Exams 03/18/25 21:27 Completed CBC Stat Lab 03/18/25 21:34 Completed CMP [Comprehensive Metabolic Panel] Stat Lab 03/18/25 21:34 Completed Vital Signs Vital signs: Vital Signs Temperature 97.9 F 03/18/25 20:26 Pulse Rate 70 03/18/25 20:26 Respiratory Rate 19 07/30/25 20:26 Blood Pressure 110/69 03/18/25 20:26 Pulse Oximetry (%) 97 03/18/25 20:26 Oxygen Delivery Method Room Air 03/18/25 20:26 O2 at 97% on RA and WNLs Neck Pain MDM Narrative MDM Narrative:: 34M with no significant PMH presents to ED with 1.5 months of painful lumps around R neck/ear area. Patient was here for initial presentation and diagnosed with influenza and given Tamiflu and Augmentin. Patient states symptoms persist and patient now has some night sweats and LUQ tenderness. Patient has had diverticulitis before and states this feels different. Physical exam reveals some tender bumps on R anterior neck/ear area, but clear R TM and oropharynx. Minimal LUQ tenderness. Patient is afebrile, calm, and alert. CT reveals significant cervical lymphadenopathy suspicious for possible early lymphoma. Labs unremarkable. Counseled to call cancer center tomorrow. Patient data External records reviewed:: [facility] previous records Clinical information provided by:: patient Social determinants that could affect healthcare access:: none Patient has the following chronic illnesses:: none How is presenting disease/condition affected by chronic disease/condition?: no chronic disease Evaluation data The following diagnostics were reviewed and interpreted by me:: lab results and radiology exam(s) Lab and/or radiology exams considered but not ordered:: ordered Interpretation Summary: above Medications / Prescriptions Medications or Prescriptions considered but not ordered:: not ordered Medication administrations:: n/a Consultations Consultation(s) initiated? (list below): No Diagnosis Neck Differential Diagnosis: disc disorder of cervical region, whiplash injury to neck, closed subluxation of cervical spine, fracture of cervical spine without lesion of spinal cord, cervical radiculopathy, vertebral artery dissection, torticollis, cervical spondylosis and strain of neck muscle Most likely diagnosis given after review of the tests above:: cervical lymphadenopathy Admission Indicated Admission indicated?: not indicated Admission Request Was there a request for admission?: No Disposition Plan Disposition Plan: Discharge Discharge Attestation Discharge Attestation: The patient and all family members were given an opportunity to ask questions and understood the discharge instructions. Discharge instructions specifically effects, indications for sooner follow up or return to the emergency department, and the expected course of current diagnosis. Patient condition: Stable Discharge Plan Plan Patient Disposition: HOME (Self Care) Discharge Disposition comment: Stable Prescriptions/Referrals Prescriptions/Med Rec: No Action mirtazapine 7.5 mg tablet 7.5 mg PO HS Patient Comments: TAKE 1 TABLET BY MOUTH EVERYDAY AT BEDTIME ibuprofen 800 mg tablet 800 mg PO TID PRN (Reason: pain) Qty: 30 0RF acetaminophen-codeine 300-30 mg tablet 2 tab PO Q8H MDD 6 PRN (Reason: pain) Qty: 20 0RF prednisone 50 mg tablet 50 mg PO QDAY Qty: 3 0RF albuterol sulfate 90 mcg/actuation HFA aerosol inhaler 2 puff inhalation Q6H PRN (Reason: shortness of breath or wheezing) Qty: 8.5 0RF amoxicillin-pot clavulanate 875-125 mg tablet 1 tab PO BID Qty: 20 0RF Referrals: No Primary/Family,Physician [Primary Care Provider] - In 1 week Problem List Clinical Impression: Lymphadenopathy, cervical Patient/Caregiver Discharge Instructions Education Materials: Lymphadenopathy Additional Instructions: Please follow-up with PCP within 24-48 hours and return immediately if symptoms worsen. Call cancer center in AM ([phone]) or follow-up with PCP. Print Language: Sinhala Stand Alone Forms: Patient Portal Info Letter LEIGHA/NANI Supervising Physician LEIGHA/NANI Supervising Physician: Dr. Rizvi
[2025-03-18 23:50] VITALS: BP 116/80; PULSE 72; RESP 16; O2SAT 98
[2025-03-19 06:35] LABS: Path Review Blood Smear Sent to Pathologist
== END 2025-03-18 23:53 | disposition home or self-care (01) ==
PROVIDERS: Physician Assistant; Emergency Provider Emergency Medicine
DX: R59.0 Localized enlarged lymph nodes (principal); R61 Generalized hyperhidrosis; R07.9 Chest pain, unspecified
CPT/HCPCS: 36415; 70491; 71260; 80053; 85025; 99283; A4649; J9190; Q9967

== ENCOUNTER 2025-04-05 20:19 | Emergency (ER) | payer MEDICAID, SELFPAY ==
[2025-04-05 20:22] VITALS: BMI 31.4
[2025-04-05 20:34] VITALS: BP 131/87; PULSE 73; RESP 20; TEMP 37.1; O2SAT 95
--- NOTE | 2025-04-05 21:07 | PD.EDANIML ---
ED Animal Bite RME/HPI General Chief Complaint: Hand/Wrist Problems Stated Complaint: WAS BITTEN BY A STRAY DOG YESTERDAY Time Seen by Provider: 04/05/25 20:23 Source: patient Arrival date/time: 04/05/25 20:19 This is a case of 34-year-old male with no medical history came in in the emergency room due to punctured wound on the right hand secondary to dog bite yesterday patient states that the dog is a stray dog unknown rabies vaccine patient tetanus shot is not up-to-date Limitations: no limitations Related Data Home Medications ?Medication ?Instructions ?Recorded ?Confirmed mirtazapine 7.5 mg tablet 7.5 mg PO HS 09/20/23 11/12/23 Previous Rx's ?Medication ?Instructions ?Recorded ibuprofen 800 mg tablet 800 mg PO TID PRN pain #30 tabs 05/09/24 acetaminophen 300 mg-codeine 30 mg 2 tab PO Q8H PRN pain #20 tabs 02/09/25 tablet albuterol sulfate 90 mcg/actuation 2 puff inhalation Q6H PRN 02/09/25 aerosol inhaler shortness of breath or wheezing #8.5 grams amoxicillin 875 mg-potassium 1 tab PO BID #20 tabs 02/09/25 clavulanate 125 mg tablet prednisone 50 mg tablet 50 mg PO QDAY #3 tabs 02/09/25 amoxicillin 875 mg-potassium 1 tab PO Q12H 10 days #20 tabs 04/05/25 clavulanate 125 mg tablet Allergies Allergy/AdvReac Type Severity Reaction Status Date / Time No Known Allergies Allergy Verified 04/05/25 20:25 Review of Systems Review of Systems Systems Reviewed: All systems reviewed, normal except as documented Constitutional Constitutional: Reports system reviewed and no additional complaints, except as documented and Reports as per HPI Cardiovascular Cardiovascular: Reports system reviewed and no additional complaints, except as documented and Reports as per HPI Gastrointestinal Gastrointestinal: Reports system reviewed and no additional complaints, except as documented and Reports as per HPI Musculoskeletal Musculoskeletal: Reports system reviewed and no additional complaints, except as documented and Reports as per HPI Integumentary/Breasts Skin/Breast: Reports other (Punctured wound) Neurologic Neurologic: Reports system reviewed and no additional complaints, except as documented and Reports as per HPI Past Medical History Past Medical History NEUROLOGIC: Negative Neurological Disorders or Seizures CARDIAC: Negative Cardiac Disorders or Congestive Heart Failure RESPIRATORY: Negative Chronic Obstructive Pulmonary Disease (COPD) or Asthma GASTROINTESTINAL: Positive Diverticulitis; Negative Gastrointestinal Disorders GENITOURINARY: Negative Genitourinary Disorders or Renal Disease MUSCULOSKELETAL: Negative Musculoskeletal Disorders ENDOCRINE: Negative Endocrine Disorders, Diabetes Mellitus Type 1 or Diabetes Mellitus Type 2 HEMATOLOGIC: Negative Blood Disorders or Sickle Cell Disease PSYCHO/SOCIAL: Positive Depression and Anxiety; Negative Bipolar Disorder OTHER HISTORY: Negative Autoimmune Disease, Blood Transfusions, Anesthesia Reactions, Organ Transplant, MRSA, Clostridium Difficile or Cancer Surgical History SURGICAL: Negative Endocrine Surgery, Ear Surgery, Abdominal Surgery, Nephrectomy, Joint Replacement, Neurologic Surgery, Mastectomy, Vasectomy or Organ Transplant Social History SMOKING STATUS: Former smoker SUBSTANCE USE: marijuana ED Exam General Limitations: Present no limitations General appearance: Present alert, in no apparent distress and other (Patient is awake alert oriented not in distress nontoxic looking) Head Head exam: Present atraumatic, normocephalic and normal inspection Eye Eye exam: Present normal appearance, PERRL and EOMI ENT ENT exam: Present normal exam, normal oropharynx and mucous membranes moist Neck Neck exam: Present normal inspection, full ROM and trachea midline; Absent tenderness Chest Chest inspection: Present normal inspection and symmetric chest wall rise; Absent tenderness Respiratory Respiratory exam: Present normal lung sounds bilaterally; Absent respiratory distress, wheezes, stridor, accessory muscle use or prolonged expiratory phase Cardiovascular Cardiovascular exam: Present regular rate, normal rhythm and normal heart sounds; Absent bradycardia, tachycardia, irregular rhythm or systolic murmur Abdominal Exam Abdominal exam: Present soft and normal bowel sounds Extremities Exam Extremities exam: Present normal inspection and full ROM Expanded Upper Extremity Exam Hand exam: Present normal inspection, full ROM and other (Small punctured wound on the right dorsal hand no bleeding no crepitation no deformity ROM intact no snuffbox tenderness neurovascular intact); Absent tenderness, swelling, abrasion, laceration, skin avulsion, ecchymosis, deformity, crepitus, dislocation, erythema, amputation, nail avulsion or subungual hematoma Back Exam Back exam: Present normal inspection and full ROM Neurological Exam Neurological exam: Present alert, oriented X3, CN II-XII intact, normal gait and reflexes normal; Absent motor sensory deficit Psychiatric Psychiatric exam: Present normal affect and normal mood Skin Skin exam: Present warm, dry, intact, normal color and other (Puncture wound wound right dorsal hand) Course Quality Measures none Orders Category Date Time Status Amoxicillin/Pot Clav 875 [Augmentin 875] Med 04/05/25 20:42 Discontinued 1 tab PO X1 ONE TET,DIP/PERT AC (Adult)-Tdap [Boostrix Adult (Tdap) Med 04/05/25 20:42 Discontinued Vacc] 0.5 ml IMI .ONCE ONE Vital Signs Vital signs: Vital Signs Temperature 98.8 F 04/05/25 20:34 Pulse Rate 73 04/05/25 20:34 Respiratory Rate 20 04/05/25 20:34 Blood Pressure 131/87 H 04/05/25 20:34 Pulse Oximetry (%) 95 04/05/25 20:34 Oxygen Delivery Method Room Air 04/05/25 20:34 Patient is afebrile not tachycardic not tachypneic BP stable no oxygen saturation is 95% in room air Animal Bite MDM Narrative MDM Narrative:: This is a case of 34-year-old male with no medical history came in in the emergency room due to punctured wound on the right hand secondary to dog bite yesterday patient states that the dog is a stray dog unknown rabies vaccine patient tetanus shot is not up-to-date physical examination patient is awake alert oriented not in distress nontoxic looking noted a small puncture wound on the right dorsal hand no bleeding no crepitation no deformity no snuffbox tenderness ROM intact neurovascular intact patient refused tetanus shot and Augmentin only verbalized need to have rabies vaccine he was advised to go to [facility] or primary care physician for rabies vaccine at the time of exam there is no indication to have rabies vaccine there is no open wound there is no signs and symptoms of infection patient was advised to follow-up with PCP regarding rabies vaccine for any emergent concern or any worsening symptoms return to the emergency room immediately or call 911 Patient was discharged with comfortable condition walking with stable gait. Patient verbalized no further complains explained diagnosis and answered patient question. Patient is comfortable with the proposed management plan including the need to follow up with his/her primary care physician and any specialist if applicable Discussed patient for any urgent condition or worsening sx, He/She needed to go to emergency room immediately or call 911. Patient acknowledge the responsibility to follow up as instructed and to monitor her/his symptoms. For any persistence of the symptoms for more than 3-5 days return precaution advised. Discussed the result of the test and was given printed discharge instruction Patient data External records reviewed:: [facility] previous records Clinical information provided by:: patient Social determinants that could affect healthcare access:: none Patient has the following chronic illnesses:: None How is presenting disease/condition affected by chronic disease/condition?: no chronic disease Evaluation data The following diagnostics were reviewed and interpreted by me:: other (specify) Lab and/or radiology exams considered but not ordered:: None Interpretation Summary: None Medications / Prescriptions Medications or Prescriptions considered but not ordered:: Refused Medication administrations:: Medication Administration History Discontinued Medications Amoxicillin/Clavulanate Potassium (Amoxicillin/Pot Clav 875 Tablet) 1 tab PO X1 ONE Stop: 04/05/25 20:43 Last Admin: 04/05/25 20:49 Dose: Not Given Documented By: BD Non-Admin Reason: Patient Refused Diphtheria/Tetanus/Acell Pertussis (Diphth,Pertuss(Acell),Tet Vac 0.5 Ml Syr- Adult) 0.5 ml IMi .ONCE ONE Stop: 04/05/25 20:43 Last Admin: 04/05/25 20:49 Dose: Not Given Documented By: BD Non-Admin Reason: Patient Refused Refused Consultations Consultation(s) initiated? (list below): No Diagnosis Differential diagnosis animal bite: bite by animal and dog bite Most likely diagnosis given after review of the tests above:: Punctured wound Admission Indicated Admission indicated?: not indicated Explain why admission is indicated or not indicated:: Not indicated Admission Request Was there a request for admission?: No Admission Attestation Admission request attestation: Not indicated Disposition Plan Disposition Plan: Discharge Discharge Attestation Discharge Attestation: The patient and all family members were given an opportunity to ask questions and understood the discharge instructions. Discharge instructions specifically effects, indications for sooner follow up or return to the emergency department, and the expected course of current diagnosis. Patient condition: Stable Discharge Plan Plan Patient Disposition: HOME (Self Care) Patient condition on transfer: Stable Prescriptions/Referrals Prescriptions/Med Rec: New amoxicillin-pot clavulanate 875-125 mg tablet 1 tab PO Q12H 10 Days Qty: 20 0RF No Action mirtazapine 7.5 mg tablet 7.5 mg PO HS Patient Comments: TAKE 1 TABLET BY MOUTH EVERYDAY AT BEDTIME ibuprofen 800 mg tablet 800 mg PO TID PRN (Reason: pain) Qty: 30 0RF acetaminophen-codeine 300-30 mg tablet 2 tab PO Q8H MDD 6 PRN (Reason: pain) Qty: 20 0RF prednisone 50 mg tablet 50 mg PO QDAY Qty: 3 0RF albuterol sulfate 90 mcg/actuation HFA aerosol inhaler 2 puff inhalation Q6H PRN (Reason: shortness of breath or wheezing) Qty: 8.5 0RF amoxicillin-pot clavulanate 875-125 mg tablet 1 tab PO BID Qty: 20 0RF Problem List Clinical Impression: Dog bite, Puncture wound Patient/Caregiver Discharge Instructions Education Materials: Animal Bites and Scratches, ED Dog Bite Additional Instructions: Follow-up with your primary care physician in 2 days for reevaluation Go to your primary care physician or go [facility] if you need rabies vaccine for any emergent concern return to the emergency room immediately or call 911 finish the course of antibiotic keep the area clean and dry Print Language: Yakut Stand Alone Forms: Kate Award Info., Patient Portal Info Letter PA/FISH FROG OR OYSTER FARMER Supervising Physician PA/FISH FROG OR [employer]YSTER F[employer]ER Supervising Physician: DR MOJICA
== END 2025-04-05 20:50 | disposition home or self-care (01) ==
LOC: SERX 20:52
PROVIDERS: Emergency Provider Emergency Medicine; PCP Family Medicine
DX: S61.431A Puncture wound without foreign body of right hand, initial encounter (principal); Z87.891 Personal history of nicotine dependence; Z28.21 Immunization not carried out because of patient refusal; W54.0XXA Bitten by dog, initial encounter
CPT/HCPCS: 99282